=== PATIENT | male | born 1960 | race Caucasian/White ===

== ENCOUNTER 2024-04-23 20:17 | Emergency (ER) | payer BC, OTHER, SELFPAY ==
--- NOTE | ~2024-04-23 | CT_ITS ---
CLINICAL HISTORY: ams - EXAM ATTEMPTED @ 0015H, PT VERY AGITATED, UNABLE TO FOLLOW COMMANDS, TRIED T O ROLL OFF CT TABLE. DESLOUCHES AWARE, NO MORE ATTEMPTS AT THIS TIME. CT head without contrast Comparison: None Findings: Head CT was attempted, but patient was very agitated and unable to cooperate. The images obtained are nondiagnostic. IMPRESSION: Nondiagnostic head CT. This document has been electronically signed by: Blayne Hanley MD on 04/24/2024 01:14:57
--- NOTE | ~2024-04-23 | XR_ITS ---
CLINICAL HISTORY: ams 1 view chest x-ray Comparison: None Findings: Portions of the exam are obscured by overlying material. The lungs are clear. Heart size is normal. No acute fracture. IMPRESSION: 1. No acute findings. This document has been electronically signed by: Christ Uriarte MD on 04/23/2024 22:07:59
[2024-04-23 20:26] VITALS: BP 101/59; BP 81/54; PULSE 60; PULSE 63; RESP 12; O2SAT 100; O2SAT 95; BMI 23.9
--- NOTE | 2024-04-23 20:39 | PC.NURSE ---
security called for changeover
[2024-04-23] MEDS: Naloxone HCl Nasal 4 MG SPRAY NOSTRILALT (21:20)
[2024-04-23] MEDS: Naloxone HCl 0.4 MG/ML VIAL IVPUSH (21:22)
[2024-04-23] MEDS: Naloxone HCl 2 MG/2 ML SYRINGE IVPUSH (21:25)
--- NOTE | 2024-04-23 21:25 | MHC.EDTECH ---
patient not allowing staff to complete the EKG. RN made aware.
--- NOTE | 2024-04-23 21:28 | PC.NURSE ---
pt unresponsive narcan and ivf given, provider at bedside with family. curtain requested to remain open to be able to assess pt resp status.
--- NOTE | 2024-04-23 21:29 | PC.NURSE ---
pt unresponsive to painful stimuli, narcan given per MD maranda Deslouches at bedside. pt slight responsive, mumbled few words. sats remain 96% on RA. Primary RN Gwendolyn made aware.
[2024-04-23] MEDS: 0.9 % Sodium Chloride 1,000 ML 999 ML IV (21:55)
--- NOTE | 2024-04-23 21:57 | PC.NURSE ---
pt awake family at bedside, narcan drip not started at this time. provider made aware.
[2024-04-23 22:00] VITALS: BP 117/68; PULSE 84; RESP 13; O2SAT 98
[2024-04-23 22:03] LABS: MANUAL DIFF FLAG NO
[2024-04-23 22:04] LABS: Basophils Percent Auto 0.2 % (0-2); Eosinophils Absolute Auto 0.2 X10*3/uL (0.0-0.4); Eosinophils Percent Auto 3.3 % (0-4); Hematocrit 36.5 % (42.0-52.0); Hemoglobin 12.4 g/dl (14.0-18.0); Imm Gran Abs Auto 0.01 X10*3/uL (0.00-0.03); Imm Gran Pct Auto 0.2 % (0.0-0.4); Lymphocytes Absolute Auto 1.6 X10*3/uL (1.2-4.9); Lymphocytes Percent Auto 29.7 % (20-40); Mean Corpuscular Volume 94.1 fL (80.0-98.0); Mean Platelet Volume 10.1 fL (9.4-12.4); Monocytes Absolute Auto 0.2 X10*3/uL (0.1-1.2); Monocytes Percent Auto 2.9 % (2-11); Neutrophils Absolute Auto 3.5 x10*3/uL (2.0-8.3); Neutrophils Percent Auto 63.7 % (45-73); Platelet Count 158 X10*3/uL (160-400); Red Blood Count 3.88 X10*6/uL (4.60-5.80); Red Cell Distribution Width 11.9 % (11.0-16.0); White Blood Count 5.5 X10*3/uL (4.8-10.8)
--- NOTE | 2024-04-23 22:13 | PC.NURSE ---
pt is more arrousable and provider made aware, order to hold on narcan drip at this time. vitals improved pt sat at 98% on room air. bp improved
[2024-04-23 22:19] LABS: Ethanol < 10 mg/dL
[2024-04-23 22:20] LABS: Anion Gap 8 (12-20); Blood Urea Nitrogen 16 mg/dL (9-16); Calcium 8.6 mg/dL (8.4-10.2); Carbon Dioxide 25 mmol/L (22-29); Chloride 110 mmol/L (96-108); Creatinine Clr Calc Pharmacy 100.7; Estimated Glomerular Filt Rate > 60; Glucose Random 95 mg/dL (60-115); Potassium 4.3 mmol/L (3.3-5.1); Sodium 139 mmol/L (135-145)
[2024-04-23 22:21] LABS: Acetaminophen LAB < 3 mcg/mL (<30); Lactic Acid 1.1 mmol/L (0.5-2.0); Salicylate < 5.0 mg/dL (15-30)
[2024-04-23 22:28] LABS: Troponin-I High Sensitivity < 2.7 ng/L (<3.5-35.0)
[2024-04-23] MEDS: Naloxone HCl 5 MG in Dextrose 5 % 95 ML 100 MG IV (22:32)
[2024-04-23 22:34] VITALS: BP 125/75; PULSE 74; RESP 17
--- NOTE | 2024-04-23 22:34 | PC.NURSE ---
provider wants doreen jordan started now. and is.
--- NOTE | 2024-04-23 23:40 | PC.NURSE ---
pt was turning in the bed and his iv came out.
[2024-04-24] VITALS: RESP 18; O2SAT 97
--- NOTE | 2024-04-24 00:31 | PC.NURSE ---
pt tossing and turning under the covers, pt refusing iv at this time. teaching attempted on the need for a iv. pt not even keeping his clothing on. very restless in bed. provider made aware of pt status. ct unable to be done due to pt got off the table
[2024-04-24 00:50] LABS: Amphetamine Screen Urine Not Detected (Not Detect); Barbiturates, Urine Not Detected (Not Detect); Benzodiazepines Screen Urine POSITIVE (Not Detect); Buprenorphine Scr Positive (Not Detect); Cannabinoid Screen Urine POSITIVE (Not Detect); Cocaine Screen Urine Not Detected (Not Detect); Fentanyl, urine Not Detected (Not Detect); Methadone Screen, Urine Not Detected (Not Detect); Opiate Screen Urine Not Detected (Not Detect); Oxycodone Screen Urine Not Detected (Not Detect); Phencyclidine Screen Urine Not Detected (Not Detect)
--- NOTE | 2024-04-24 00:57 | PC.NURSE ---
pt getting aggressive figity and not allowing this pt to take vitals.
--- NOTE | 2024-04-24 01:34 | ED_ITS ---
HPI - General Adult General Chief complaint: Altered Mental Status Stated complaint: suspected opiates Time Seen by Provider: 04/23/24 21:13 Source: family Limitations: altered mental status History of Present Illness ED Provider: Luke DE JESUS narrative: 63-year-old male with reported history of substance abuse presenting for altered mental status. Patient was found by his nephew this evening on the ground is subsequently called EMS. Nephew states that patient has history substance abuse and last saw him this morning. Nephew suspects that patient overdosed. Related Data Allergies Allergy/AdvReac Type Severity Reaction Status Date / Time Unable to Assess Allergy Verified 04/23/24 20:34 Review of Systems 2 Review of Systems: Yes Unobtainable due to mental status PMFSH Past Medical History PMFSH Narrative: Substance abuse Source: obtained from family Social History Social History Advance Directives: No Advance Directives Information Provided: No Do you have a plan to hurt others: No Plan Physical Exam ED Vital Signs: Vital Signs - 24 hr 04/23/24 20:26 04/23/24 22:00 04/23/24 22:34 Pulse Rate 60 84 74 Respiratory Rate 12 13 17 Blood Pressure 101/59 L 117/68 125/75 Pulse Oximetry 95 98 Oxygen Delivery Method Room Air Room Air Room Air 04/24/24 00:00 04/24/24 02:00 Pulse Rate 67 Respiratory Rate 18 18 Blood Pressure Pulse Oximetry 97 98 Oxygen Delivery Method Room Air Room Air BMI result Body Mass Index 23.9 Somnolent Head normocephalic and atraumatic Pinpoint pupils Bilateral breath sounds present Normal S1-S2 regular rate rhythm Abdomen soft, nondistended Medications Administered Discontinued Medications Generic Name Dose Route Start Last Admin Trade Name Freq PRN Reason Stop Dose Admin Sodium Chloride 1,000 mls @ 999 mls/hr 04/23/24 21:30 04/24/24 00:21 Ns IV 04/23/24 22:30 Infused .Q1H1M MAUDE Infusion Naloxone HCl 5 mg/ Dextrose 100 mls @ 100 mls/hr 04/23/24 21:30 04/24/24 00:59 IV Not Given .Q1H MAUDE 5 MG/HR Midazolam HCl 2 mg 04/24/24 00:57 04/24/24 00:58 Midazolam Hcl 2 Mg/2 Ml Vial IM 04/24/24 00:58 Not Given ONCE ONE Naloxone HCl 0.4 mg 04/23/24 21:16 04/23/24 21:22 Naloxone Hcl 0.4 Mg/Ml Vial IVPUSH 04/23/24 21:17 0.4 mg ONCE ONE Administration Naloxone HCl 4 mg 04/23/24 21:16 04/23/24 21:20 Naloxone Hcl Nasal 4 Mg [place] NOSTRILALT 04/23/24 21:17 4 mg ONCE ONE Administration Naloxone HCl 2 mg 04/23/24 21:22 04/23/24 21:25 Naloxone Hcl 2 Mg/2 Ml Syringe IVPUSH 04/23/24 21:23 2 mg ONCE ONE Administration Medical Decision Making Medical Decision Making [facility] Narrative: 63-year-old male presents for altered mental status -I am concerned for the following; intoxication, drug overdose, head trauma, neck trauma -labs, imaging and naloxone ordered Patient responded to naloxone; drip ordered Lab and imaging interpretation: H&H within normal limits, normal white count UA positive for marijuana and buprenorphine Patient became agitated and IV access was lost. On re-examination patient is responding appropriately to questions and moving all extremities although still somnolent. I do not feel that Narcan drip is necessary at this point. Head imaging was attempted however patient would not stay still for it. Given improvement in mental status I do not feel that this is necessary. Patient is not endorsing neck pain Patient signed out to overnight attending; pending sobriety and re-evaluation Lab Data 04/23/24 21:56 04/23/24 21:56 Labs: Lab Results 04/23/24 04/24/24 Range/Units 21:56 00:26 WBC 5.5 (4.8-10.8) X10*3/uL RBC 3.88 L (4.60-5.80) X10*6/uL Hgb 12.4 L (14.0-18.0) g/dl Hct 36.5 L (42.0-52.0) % MCV 94.1 (80.0-98.0) fL MCH 32.0 (27.0-33.0) pg MCHC 34.0 (31.0-36.0) g/dl RDW 11.9 (11.0-16.0) % Plt Count 158 L (160-400) X10*3/uL MPV 10.1 (9.4-12.4) fL Immature Gran % (Auto) 0.2 (0.0-0.4) % Neut % (Auto) 63.7 (45-73) % Lymph % (Auto) 29.7 (20-40) % [place] % (Auto) 2.9 (2-11) % Eos % (Auto) 3.3 (0-4) % Baso % (Auto) 0.2 (0-2) % Lymph # (Auto) 1.6 (1.2-4.9) X10*3/uL [place] # (Auto) 0.2 (0.1-1.2) X10*3/uL Eos # (Auto) 0.2 (0.0-0.4) X10*3/uL Baso # (Auto) 0.0 (0.0-0.2) X10*3/uL Abs Immat Gran (auto) 0.01 (0.00-0.03) X10*3/uL Absolute Neuts (auto) 3.5 (2.0-8.3) x10*3/uL Absolute Nucleated RBC 0.000 (0.0-0.012) X10*3/uL Nucleated RBC % (auto) 0.0 (0.0-0.2) /100WBC Sodium 139 (135-145) mmol/L Potassium 4.3 (3.3-5.1) mmol/L Chloride 110 H (96-108) mmol/L Carbon Dioxide 25 (22-29) mmol/L Anion Gap 8 L (12-20) BUN 16 (9-16) mg/dL Creatinine 0.77 (0.5-1.4) mg/dL Estim Creat Clear Calc 100.7 Estimated GFR > 60 Random Glucose 95 (60-115) mg/dL Lactic Acid 1.1 (0.5-2.0) mmol/L Calcium 8.6 (8.4-10.2) mg/dL Total Creatine Kinase 2454 H (38-174) U/L Troponin I High Sens < 2.7 (<3.5-35.0) ng/L Salicylates < 5.0 L (15-30) mg/dL Urine Opiates Screen Not Detected (Not Detect) Ur Buprenorphine Scrn Positive H (Not Detect) ng/mL Ur Oxycodone Screen Not Detected (Not Detect) ng/mL Urine Methadone Screen Not Detected (Not Detect) ng/mL Urine Fentanyl Screen Not Detected (Not Detect) Acetaminophen < 3 (<30) mcg/mL Ur Barbiturates Screen Not Detected (Not Detect) Ur Phencyclidine Scrn Not Detected (Not Detect) Ur Amphetamines Screen Not Detected (Not Detect) U Benzodiazepines Scrn POSITIVE H (Not Detect) Urine Cocaine Screen Not Detected (Not Detect) U Marijuana (THC) Screen POSITIVE H (Not Detect) Ethyl Alcohol < 10 mg/dL Discharge Plan Discharge Clinical Impression: Intoxication by drug Patient Disposition: Still a Patient Print Language: Turkmen ED Observation ED Observation Admit Reason for Observation: Behavioral Anticipated Goals: Discharge Diagnostic Studies: Await sobriety HPI and ROS: 63-year-old male presenting for intoxication. Responded well to naloxone. Pending sobriety
[2024-04-24 02:00] VITALS: PULSE 67; RESP 18; O2SAT 98
[2024-04-24 04:00] VITALS: PULSE 66; RESP 16; O2SAT 98
--- NOTE | 2024-04-24 05:45 | PC.NURSE ---
pt has been refusing vitals states it is too cold. pt covers himself back up and will not let this rn apply the bp cuff. pt is back to baseline alert oriented and ready for discharge.
--- NOTE | 2024-04-24 06:28 | PC.NURSE ---
pt feels ready for discharge.
[2024-04-24 06:35] VITALS: BP 123/78; PULSE 61; RESP 16; O2SAT 100
[2024-04-24 06:39] VITALS: BP 123/78; PULSE 61; RESP 16; TEMP -17.7; TEMP 0; O2SAT 100
== END 2024-04-24 06:40 | disposition home or self-care (01) ==
PROVIDERS: Emergency Provider Student in an Organized Health Care Education/Training Program
DX: F11.10 Opioid abuse, uncomplicated (principal); R41.82 Altered mental status, unspecified; R11.0 Nausea; F12.90 Cannabis use, unspecified, uncomplicated; Z51.81 Encounter for therapeutic drug level monitoring; Z79.899 Other long term (current) drug therapy; Z71.51 Drug abuse counseling and surveillance of drug abuser
CPT/HCPCS: 36415; 70450; 71045; 80048; 80143; 80179; 80307; 82550; 83605; 84484; 85025; 96361; 96374; 99284; J2310

== ENCOUNTER → 2024-04-23 21:24 | Outpatient (BNV) | payer OTHER, SELFPAY | PROVIDERS: Emergency Provider Student in an Organized Health Care Education/Training Program; Visit Provider Specialist | DX: R41.82 Altered mental status, unspecified (principal) | CPT/HCPCS: 71045 ==

== ENCOUNTER → 2024-04-24 | Outpatient (BNV) | payer OTHER, SELFPAY | PROVIDERS: Emergency Provider Student in an Organized Health Care Education/Training Program; Visit Provider Radiology Diagnostic Radiology | DX: R41.82 Altered mental status, unspecified (principal) | CPT/HCPCS: 70450 ==